=== PATIENT | female | born 1940 | race Two or more races ===

== ENCOUNTER 2017-10-11 12:13 | Outpatient (CLI) | payer OTHER | END 2017-10-11 13:39 | disposition home or self-care (01) | LOC: MRI 12:13 | DX: M54.2 Cervicalgia (principal); M54.12 Radiculopathy, cervical region | CPT/HCPCS: 72141 ==

== ENCOUNTER 2018-02-12 12:44 | Outpatient (CLI) | payer OTHER | END 2018-02-12 12:51 | disposition home or self-care (01) | LOC: RAD 501 12:44 | DX: M25.561 Pain in right knee (principal); M25.562 Pain in left knee ==

== ENCOUNTER 2018-04-15 09:05 | Outpatient (CLI) | payer OTHER | END 2018-04-15 09:07 | disposition home or self-care (01) | LOC: SONOGRAMA 09:05 | DX: M25.561 Pain in right knee (principal) ==

== ENCOUNTER 2022-02-07 07:14 | Outpatient (CLI) | payer OTHER | END 2022-02-07 08:23 | disposition home or self-care (01) | LOC: MRI 07:14 | PROVIDERS: ATTEND Physical Medicine & Rehabilitation | DX: M17.11 Unilateral primary osteoarthritis, right knee (principal); M25.561 Pain in right knee | CPT/HCPCS: 73721 ==

== ENCOUNTER 2022-10-29 13:32 | Outpatient (CLI) | payer OTHER | END 2022-10-29 13:43 | disposition home or self-care (01) | LOC: RAD 13:32 | PROVIDERS: ATTEND Physical Medicine & Rehabilitation | DX: M17.11 Unilateral primary osteoarthritis, right knee (principal) ==

== ENCOUNTER 2022-12-05 09:00 | Inpatient (IN) | payer OTHER ==
[~2022-12-05] VITALS: Ht 160 cm; Wt 75.3 kg
[2022-12-06] MEDS ORDERED: DOXAZOSIN MESYLA2 MG PO (08:27)
[2022-12-06] MEDS ORDERED: ATORVASTATIN CA10 MG PO (08:27)
[2022-12-06] MEDS ORDERED: TOPROL XL50 M1 PO (08:28)
[2022-12-06] MEDS ORDERED: TRANSDERM-SCOP1 EACH TD (08:28)
[2022-12-06] MEDS ORDERED: OPTIMAL D3 M350 MCG PO (08:29)
[2022-12-06] MEDS ORDERED: SINGULAIR10 MG PO (08:29)
[2022-12-06] MEDS ORDERED: SYNTHROID100 MCG PO (08:30)
[2022-12-06] MEDS ORDERED: VALSARTAN-HCTZ1 EAC4 PO ×2 (08:30→08:31)
[2022-12-06] MEDS ORDERED: B-COMPLEX1 EACH PO (08:31)
[2022-12-11] MEDS ORDERED: METOPROLOL TART50 MG (08:42)
[2022-12-11] MEDS ORDERED: VITAMIN B-121000 MC4 (08:43)
[2022-12-11] MEDS ORDERED: VITAMIN D31250 MCG PO (08:44)
[2022-12-12] MEDS ORDERED: PERCOCET 5-3251 EACH PO (07:58)
[2022-12-12] MEDS ORDERED: ELIQUIS2.5 MG PO (07:58)
[2022-12-12] MEDS ORDERED: DUI500 PO (07:58)
== END 2022-12-13 16:24 | DRG 470 ==
LOC: SURG 12-11 05:27 → O/R 12-11 05:27 → SURG 12-11 07:45
PROVIDERS: ADMIT Orthopaedic Surgery; ATTEND Orthopaedic Surgery
PROC: 0SRC0J9 Replacement of Right Knee Joint with Synthetic Substitute, Cemented, Open Approach (ICD-10-PCS; principal; 2022-12-11 13:00)
DX: M17.11 Unilateral primary osteoarthritis, right knee (principal); M22.11 Recurrent subluxation of patella, right knee; E66.9 Obesity, unspecified; I10 Essential (primary) hypertension; E03.9 Hypothyroidism, unspecified; Z96.651 Presence of right artificial knee joint; Z20.822 Contact with and (suspected) exposure to COVID-19